=== PATIENT | female | born 2000 | race Caucasian/White ===

== ENCOUNTER → 2020-03-20 13:55 | Outpatient (BNVA) | payer MEDICAID, SELFPAY | PROVIDERS: Family Provider Nurse Practitioner Family; PCP Nurse Practitioner Family; Visit Provider Obstetrics & Gynecology | DX: Z12.4 Encounter for screening for malignant neoplasm of cervix (principal); N93.9 Abnormal uterine and vaginal bleeding, unspecified | CPT/HCPCS: 83001; 84146; 84443; 88175 ==

== ENCOUNTER → 2020-04-04 13:12 | Outpatient (BNVA) | payer MEDICAID, SELFPAY | PROVIDERS: Family Provider Nurse Practitioner Family; PCP Nurse Practitioner Family; Visit Provider Obstetrics & Gynecology | DX: N93.9 Abnormal uterine and vaginal bleeding, unspecified (principal); N85.2 Hypertrophy of uterus; N83.8 Other noninflammatory disorders of ovary, fallopian tube and broad ligament | CPT/HCPCS: 76830 ==

== ENCOUNTER → 2020-04-17 14:30 | Outpatient (BNVA) | payer MEDICAID, SELFPAY | PROVIDERS: Family Provider Nurse Practitioner Family; PCP Nurse Practitioner Family; Visit Provider Family Medicine | DX: N93.9 Abnormal uterine and vaginal bleeding, unspecified (principal); Z32.01 Encounter for pregnancy test, result positive | CPT/HCPCS: 81025; 84702 ==

== ENCOUNTER → 2020-05-08 11:04 | Outpatient (BNVA) | payer MEDICAID, SELFPAY | PROVIDERS: Family Provider Nurse Practitioner Family; PCP Nurse Practitioner Family; Visit Provider Nurse Practitioner Family | DX: Z11.59 Encounter for screening for other viral diseases (principal) | CPT/HCPCS: 87635 ==

== ENCOUNTER → 2020-05-19 10:19 | Outpatient (BNVA) | payer MEDICAID, SELFPAY | PROVIDERS: Family Provider Nurse Practitioner Family; PCP Nurse Practitioner Family; Visit Provider Obstetrics & Gynecology | DX: O20.9 Hemorrhage in early pregnancy, unspecified (principal) | CPT/HCPCS: 84702 ==

== ENCOUNTER → 2020-05-23 08:44 | Outpatient (BNVA) | payer MEDICAID, SELFPAY | PROVIDERS: Family Provider Nurse Practitioner Family; PCP Nurse Practitioner Family; Visit Provider Obstetrics & Gynecology | DX: Z36.87 Encounter for antenatal screening for uncertain dates (principal); O20.9 Hemorrhage in early pregnancy, unspecified | CPT/HCPCS: 76817; 84702 ==

== ENCOUNTER → 2020-05-25 14:12 | Outpatient (BNVA) | payer MEDICAID, SELFPAY | PROVIDERS: Family Provider Nurse Practitioner Family; PCP Nurse Practitioner Family; Visit Provider Obstetrics & Gynecology | DX: O03.4 Incomplete spontaneous abortion without complication (principal) | CPT/HCPCS: 84702 ==

== ENCOUNTER → 2020-05-30 13:52 | Outpatient (BNVA) | payer MEDICAID, SELFPAY | PROVIDERS: Family Provider Nurse Practitioner Family; PCP Nurse Practitioner Family; Visit Provider Obstetrics & Gynecology | DX: O03.4 Incomplete spontaneous abortion without complication (principal) | CPT/HCPCS: 84702 ==

== ENCOUNTER → 2020-06-14 11:10 | Outpatient (BNVA) | payer MEDICAID, SELFPAY | PROVIDERS: Family Provider Nurse Practitioner Family; PCP Nurse Practitioner Family; Visit Provider Obstetrics & Gynecology | DX: O03.4 Incomplete spontaneous abortion without complication (principal) | CPT/HCPCS: 84702 ==

== ENCOUNTER → 2020-06-23 14:55 | Outpatient (BNVA) | payer MEDICAID, SELFPAY | PROVIDERS: Family Provider Nurse Practitioner Family; PCP Nurse Practitioner Family; Visit Provider Obstetrics & Gynecology | DX: O03.4 Incomplete spontaneous abortion without complication (principal) | CPT/HCPCS: 84702 ==

== ENCOUNTER → 2020-11-02 16:49 | Outpatient (BNVA) | payer BC, MEDICAID, SELFPAY | PROVIDERS: Family Provider Nurse Practitioner Family; PCP Nurse Practitioner Family; Visit Provider Nurse Practitioner Family | DX: N91.2 Amenorrhea, unspecified (principal); Z34.90 Encounter for supervision of normal pregnancy, unspecified, unspecified trimester; Z68.29 Body mass index [BMI] 29.0-29.9, adult; Z71.89 Other specified counseling | CPT/HCPCS: 81025 ==

== ENCOUNTER → 2020-11-09 10:36 | Outpatient (BNVA) | payer BC, MEDICAID, SELFPAY | PROVIDERS: Family Provider Nurse Practitioner Family; PCP Nurse Practitioner Family; Visit Provider Nurse Practitioner Women's Health | DX: Z34.80 Encounter for supervision of other normal pregnancy, unspecified trimester (principal) | CPT/HCPCS: 81000 ==

== ENCOUNTER → 2020-11-15 15:20 | Outpatient (BNVA) | payer BC, MEDICAID, SELFPAY | PROVIDERS: Family Provider Nurse Practitioner Family; PCP Nurse Practitioner Family; Visit Provider Obstetrics & Gynecology | DX: O21.9 Vomiting of pregnancy, unspecified (principal) | CPT/HCPCS: 80307; 81000; 85027; 86592; 86762; 86787; 86803; 86850; 86900; 87086; 87340 ==

== ENCOUNTER → 2020-11-27 14:45 | Outpatient (BNVA) | payer BC, MEDICAID, SELFPAY | PROVIDERS: Family Provider Nurse Practitioner Family; PCP Nurse Practitioner Family; Visit Provider Obstetrics & Gynecology | DX: Z34.80 Encounter for supervision of other normal pregnancy, unspecified trimester (principal) | CPT/HCPCS: 81000; 87491; 87591 ==

== ENCOUNTER → 2020-12-26 14:25 | Outpatient (BNVA) | payer BC, MEDICAID, SELFPAY | PROVIDERS: Family Provider Nurse Practitioner Family; PCP Nurse Practitioner Family; Visit Provider Nurse Practitioner Women's Health | DX: Z34.80 Encounter for supervision of other normal pregnancy, unspecified trimester (principal) | CPT/HCPCS: 81000 ==

== ENCOUNTER → 2021-01-23 11:52 | Outpatient (BNVA) | payer BC, MEDICAID, SELFPAY | PROVIDERS: Family Provider Nurse Practitioner Family; PCP Nurse Practitioner Family; Visit Provider Obstetrics & Gynecology | DX: O35.1XX0 Maternal care for (suspected) chromosomal abnormality in fetus, not applicable or unspecified (principal); J45.40 Moderate persistent asthma, uncomplicated; F41.9 Anxiety disorder, unspecified | CPT/HCPCS: 81000 ==

== ENCOUNTER → 2021-02-21 08:04 | Outpatient (BNVA) | payer BC, MEDICAID, SELFPAY | PROVIDERS: Family Provider Nurse Practitioner Family; PCP Nurse Practitioner Family; Visit Provider Nurse Practitioner Women's Health | DX: Z34.80 Encounter for supervision of other normal pregnancy, unspecified trimester (principal) | CPT/HCPCS: 81000 ==

== ENCOUNTER → 2021-03-21 12:46 | Outpatient (BNVA) | payer BC, MEDICAID, SELFPAY | PROVIDERS: Family Provider Nurse Practitioner Family; PCP Nurse Practitioner Family; Visit Provider Nurse Practitioner Women's Health | DX: Z34.80 Encounter for supervision of other normal pregnancy, unspecified trimester (principal) | CPT/HCPCS: 81000; 82950; 85025 ==

== ENCOUNTER → 2021-03-27 08:24 | Outpatient (BNVA) | payer BC, MEDICAID, SELFPAY | PROVIDERS: Family Provider Nurse Practitioner Family; PCP Nurse Practitioner Family; Visit Provider Nurse Practitioner Women's Health | DX: Z34.80 Encounter for supervision of other normal pregnancy, unspecified trimester (principal) | CPT/HCPCS: 82951; 82952 ==

== ENCOUNTER → 2021-04-02 08:13 | Outpatient (BNVA) | payer BC, MEDICAID, SELFPAY | PROVIDERS: Family Provider Nurse Practitioner Family; PCP Nurse Practitioner Family; Visit Provider Obstetrics & Gynecology | DX: Z34.80 Encounter for supervision of other normal pregnancy, unspecified trimester (principal) | CPT/HCPCS: 81000 ==

== ENCOUNTER → 2021-04-16 14:22 | Outpatient (BNVA) | payer BC, MEDICAID, SELFPAY | PROVIDERS: Family Provider Nurse Practitioner Family; PCP Nurse Practitioner Family; Visit Provider Obstetrics & Gynecology | DX: J45.40 Moderate persistent asthma, uncomplicated (principal); Z34.80 Encounter for supervision of other normal pregnancy, unspecified trimester | CPT/HCPCS: 81000 ==

== ENCOUNTER → 2021-05-01 10:05 | Outpatient (BNVA) | payer BC, MEDICAID, SELFPAY | PROVIDERS: Family Provider Nurse Practitioner Family; PCP Nurse Practitioner Family; Visit Provider Obstetrics & Gynecology | DX: Z34.80 Encounter for supervision of other normal pregnancy, unspecified trimester (principal) | CPT/HCPCS: 81000 ==

== ENCOUNTER → 2021-05-14 15:32 | Outpatient (BNVA) | payer BC, MEDICAID, SELFPAY | PROVIDERS: Family Provider Nurse Practitioner Family; PCP Nurse Practitioner Family; Visit Provider Obstetrics & Gynecology | DX: Z34.80 Encounter for supervision of other normal pregnancy, unspecified trimester (principal) | CPT/HCPCS: 81000; 87081 ==

== ENCOUNTER → 2021-05-22 13:21 | Outpatient (BNVA) | payer BC, MEDICAID, SELFPAY | PROVIDERS: Family Provider Nurse Practitioner Family; PCP Nurse Practitioner Family; Visit Provider Obstetrics & Gynecology | DX: Z34.80 Encounter for supervision of other normal pregnancy, unspecified trimester (principal) | CPT/HCPCS: 81000 ==

== ENCOUNTER → 2021-05-28 08:47 | Outpatient (BNVA) | payer BC, MEDICAID, SELFPAY | PROVIDERS: Family Provider Nurse Practitioner Family; PCP Nurse Practitioner Family; Visit Provider Obstetrics & Gynecology | DX: Z34.80 Encounter for supervision of other normal pregnancy, unspecified trimester (principal) | CPT/HCPCS: 81000 ==

== ENCOUNTER 2021-05-31 11:40 | Outpatient (CLI) | payer BC, MEDICAID, SELFPAY ==
[2021-06-01 13:43] LABS: Coronavirus Test Green County Not Detected
== END 2021-05-31 11:49 | disposition home or self-care (01) ==
LOC: OPOB 11:47
PROVIDERS: Obstetrics & Gynecology; Family Provider Nurse Practitioner Family; PCP Nurse Practitioner Family; Visit Provider Obstetrics & Gynecology
DX: Z34.80 Encounter for supervision of other normal pregnancy, unspecified trimester (principal); Z20.822 Contact with and (suspected) exposure to COVID-19
CPT/HCPCS: 87635

== ENCOUNTER 2021-06-04 06:35 | Inpatient (IN) | payer BC, MEDICAID, SELFPAY ==
[2021-06-04] VITALS (62 sets, daily range): BP systolic 114–155; BP diastolic 62–101; PULSE 94–146; RESP 16–22; TEMP 36.3–36.6; O2SAT 97–99; BMI 34.1
[2021-06-04] MEDS: lactated ringers 1,000 ML 999 ML IV (06:55)
[2021-06-04 07:18] LABS: Add Urine Microscopic? YES; Bilirubin Urine Neg (Negative); Blood Urine Neg (Negative); Glucose Urine UA Norm (Normal); Ketones Urine Negative (Negative); Leukocyte Esterase Urine 2+ (Negative); Nitrate Urine Negative (Negative); Protein Urine Neg (Negative); Urine Appearance Hazy (CLEAR); Urine Color Yellow (Yellow); Urobilinogen Urine 1 mg/dL (Negative); pH Urine 6 (5-7)
[2021-06-04 07:19] LABS: Basophils % 0.3 %; Eosinophils # 0.2 10^3/uL (0.0-0.8); Eosinophils % 1.3 %; Hematocrit 33.8 % (37.0-47.0); Hemoglobin 10.9 g/dL (11.5-15.3); Lymphocytes # 2.2 10^3/uL (0.8-4.8); Lymphocytes % 18.9 %; Mean Corpuscular HGB Conc 32.2 g/dL (30.0-36.0); Mean Corpuscular Hemoglobin 29.1 pg (28.0-34.0); Mean Corpuscular Volume 90.1 fl (81-99); Mean Platelet Volume 10.7 fL (7.4-10.4); Monocytes # 0.9 10^3/uL (0.2-0.9); Monocytes % 7.8 %; Neutrophils # 8.09 10^3/uL (1.8-7.7); Neutrophils % 70.7 %; Nucleated Red Blood Cells % 0 %; Platelet Count 198 10^3/cmm (130-400); Red Blood Count 3.75 10^6/uL (4.1-5.3); Red Cell Distribution Width 15.9 % (12.1-15.1); White Blood Count 11.5 10^3/uL (4.0-10.0)
[2021-06-04] MEDS: oxytocin 30 UNIT/500 ML BAG IV (07:29)
[2021-06-04] MEDS: dextrose 5%-lactated ringers 1,000 ML 125 ML IV (07:30)
[2021-06-04 07:31] LABS: Alanine Aminotransferase < 5 U/L (0-33); Albumin Level 3.7 g/dL (3.5-5.2); Alkaline Phosphatase 131 IU/L (35-105); Aspartate Amino Transferase 10 U/L (0-32); Blood Urea Nitrogen 6 mg/dL (6-20); Calcium 8.7 mg/dL (8.5-10.5); Carbon Dioxide 20 mmol/L (22-29); Chloride 105 mmol/L (98-107); Globulin 2.6 g/dL (1.3-4.6); Glomerular Filtration Rate 197.8 mL/min (90-130); Glucose 91 mg/dL (65-115); Osmolality Calculated 281 mOsm/kg (285-295); Sodium 137 mmol/L (136-145); Total Bilirubin 0.3 mg/dL (0.15-1.2); Total Protein 6.3 g/dL (6.6-8.7)
[2021-06-04 07:41] LABS: Urine Creatinine 129 mg/dL (28-217)
[2021-06-04 07:43] LABS: Add Urine Culture? No; Bacteria Urine 1+ /hpf; Mucus Urine TRACE /hpf
[2021-06-04 07:45] LABS: UPRO/UCREAT Ratio 0.21 mg/mg CR; Urine Protein Random 27 mg/dL
--- NOTE | 2021-06-04 14:10 | P.HPUD_ITS ---
Labor & Delivery H&P Update Date of Procedure: June 04, 2021 Date H&P Performed: 05/28/21 H&P update information: I have reviewed H&P completed within last 30 days, I have examined patient prior to procedure, Changes to prior documentation as noted here and H&P is in [facility] EMR on date indicated Changes to previous documentation: cx-3-4 cmx Admission Diagnosis:
[2021-06-04] MEDS: fentaNYL 50 mcg/mL INJ 2mL IVP (15:15)
[2021-06-04] MEDS: lidocaine 2% INJ 20 mL INJECTION (15:45)
--- NOTE | 2021-06-04 16:41 | PM.DELIVERY ---
Delivery Note: Date of delivery: June 04, 2021 - PRE-DELIVERY DIAGNOSIS: 21-year-old 4 para 2-0-1-2 at 39 weeks and 1-day gestation Moderate asthma Elective induction of labor Anemia on iron Multiparity desiring permanent sterilization POST-DELIVERY DIAGNOSIS: Vaginal delivery on 06/04/2021 PROCEDURE: Vaginal delivery on 06/04/2021 ANESTHESIA: Epidural anesthesia DELIVERING PHYSICIAN: Mati Potter FACOG PRE-DELIVERY COURSE: Ms. Hernandez is a 21-year-old 4 para 2-0-1-2 at 39 weeks and 1 days who presented to labor and delivery on 06/04/2021 for scheduled elective induction of labor for term . On initial evaluation she was noted to be 2 cm 50% and -3 station with cephalic presentation. tracing was overall category 1 with occasional contractions. She is GBS and Covid negative. Induction of labor was started with Pitocin which was titrated to a maximum of 11 mIU. Pitocin was started at 7:30 AM. With this she started regular contractions. Artificial rupture of membranes was performed at 11:45 AM with clear fluid at which point of time she was noted to be 3 to 4 cm, 70% and -2 station-cephalic. She made rapid cervical change after this and was 7 to 8 cm at 3:10 PM and fully dilated at 3:32 PM. She was set up in lithotomy position ready to push. tracing was category 1 thus far DELIVERY NOTE: She was set up in lithotomy position and was pushing effectively. She was noted to be +3 station and continued pushing well. The head delivered in KIAN position, nuchal cord x1 was present. This was reduced without any difficulty. The shoulders and rest of the body followed with her next push. The baby's mouth and nose were suctioned and the baby was placed on the mother's belly. Once cord pulsations stopped the cord was clamped and cut. The placenta delivered spontaneously intact with membranes and was discarded. The fundus was noted to be a little boggy and with massage a lot of urine came out. Patient was straight cath number 200 mL of clear urine was obtained after which with continued uterine massage the fundus was firm and well contracted. The vagina and cervix were inspected and no cervical or sulcal lacerations were noted. The perineum had a first-degree perineal tear which was repaired in the usual fashion with 3-0 Vicryl on an SH. Good reapproximation and hemostasis was achieved. Baby girl, Elier born at 3:40 PM with 8/9, weighing 8 pounds 6 ounces, 3800 g, 21 inches long. Placenta was delivered spontaneously intact with membranes at 3:42 PM. Cotyledons were intact , centrally inserted umbilical cord with 3 vessels noted. Estimated blood loss 350 mL. Complications-none, both baby and mother were left to recover in a stable condition. -We discussed that a tubal ligation is a permanent procedure and that should she desire to have a reversal procedure the success rate of a reversal procedure is low. I also discussed the failure rate of tubal ligation is less than 1% and that should she find out she is after having the procedure, she needs to see an PATHOLOGY LAB TECHNICIAN immediately as her risk of having an ectopic is higher. She also understands that the regret rate is higher when people to choose permanent sterilization at a younger age. We also discussed the other forms of reversible contraceptions including an IUD, patch, OCP, nexplanon, Depo-Provera. She understands that she has other options but she wants to have her tubes tied. -I discussed with her the difference between partial and total salpingectomy--failure rate, risk of ectopic, reversal success etc. and all her questions were answered. Discussed decreasing risk of ovarian cancer and recommendation for total salpingectomy. -Surgical procedure reviewed with patient including risks of bleeding, infection, anesthesia risk, damage to surrounding organs including bladder, bowel, blood vessels, possible laparotomy, blood transfusion etc. - -Discussed usual recovery with 6 weeks of no heavy lifting and pelvic rest. Discussed importance of being compliant with these postoperative restrictions to ensure that there are no postoperative complications. This documentation was created by [employer] evp global product leadership software (known for inherent evp global product leadership error). Every effort was made to assure accuracy of evp global product leadership. Any obvious errors or omissions should be clarified with the author of the document. History History History 4 Term 3 Miscarriages/Ectopic 1 0 Living Children 3 Other History: 4, Para 3013 x 3 SAB x 1 1--->06/02/2013, male (Joe), weighing 7lbs 9ozs, 38 weeks. Delivered vaginally by Dr. Muniz at [facility] [place], [place]. Three hour labor with no complications and no epidural. 2--->02/07/2016, female, (Vilma), 8lbs 0 oz, 39 weeks, vaginal delivery by Dr. Potter at [facility] in [place], [place]. No epidural. No complications 3---> 05/2020, SAB at 9 weeks. No D & C required. 4--->06/04/2021, vaginal delivery of a baby girl (Elier) weighing 8 pounds 6 ounces at 39 weeks. Vaginal delivery by Dr. Potter at [facility]. 6-hour induction. First-degree perineal tear Coding Level of Care Code Acute Him Specialist for Chg Jose Maria
[2021-06-04] MEDS: ibuprofen 800 mg tablet PO (20:27)
[2021-06-05] VITALS (22 sets, daily range): BP systolic 122–145; BP diastolic 69–97; PULSE 76–100; RESP 14–18; TEMP 36.2–36.6; O2SAT 92–98
[2021-06-05 05:24] LABS: Hematocrit 30.2 % (37.0-47.0); Hemoglobin 9.9 g/dL (11.5-15.3); Mean Corpuscular HGB Conc 32.8 g/dL (30.0-36.0); Mean Corpuscular Hemoglobin 29.5 pg (28.0-34.0); Mean Corpuscular Volume 89.9 fl (81-99); Platelet Count 177 10^3/cmm (130-400); Red Blood Count 3.36 10^6/uL (4.1-5.3); Red Cell Distribution Width 15.8 % (12.1-15.1); White Blood Count 14.5 10^3/uL (4.0-10.0)
[2021-06-05] MEDS: lactated ringers 1,000 ML 999 ML IV (06:28)
--- NOTE | 2021-06-05 06:35 | PC.NURSE ---
Socks and SCD's placed on patient. IV flushed and patent. Bolus hanging. Stomach cleansed with chlorhexidine wipes.
--- NOTE | 2021-06-05 07:21 | P.ANESASSM_ITS ---
Pre-Anesthetic Assessment Pre-Anesthetic Assessment: Height/Weight: Height 1.63 m Weight 90.265 kg Temp Pulse Resp BP Pulse Ox 97.2 F L 100 18 145/97 97 06/05/21 07:08 06/05/21 07:08 06/05/21 07:08 06/05/21 07:08 06/05/21 07:08 Preop Diagnosis: Undesired fertility Proposed Procedure: Operation Date: 06/05/21 08:10 Proposed Procedures p Bilateral Tubal Ligation(Not Applicable) - Mati Robles MD Was Beta Linnea taken within 24 hours: N/A Was Clonidine taken within 24 hours: N/A Last intake: Intake Last Liquid Date 06/04/21 Last Liquid Time 23: Last Solid Date 06/04/21 Last Solid Time 23: Social: Social History: No alcohol and No tobacco Exam: Pre-Anes Outpt Exam: alert, oriented x 3, clear to auscultation b ilaterally and regular rate & rhythm Airway: Submandibular: WNL Cervical ROM: WNL MP: 2 Pulmonary: Pulmonary: Asthma CV/HEM: CV/HEM: None reported : : None reported Hepatic: Hepatic: None reported GI: GI: GERD Metabolic: Metabolic: None reported Musc/skel: Musc/skel: None reported Neuropsych: Neuropsych: None reported Anesthetic Plan: ASA status: 2 Anesthesia: General Meds/Allergies Current Medications: Current Medications Generic Name Dose Route Start Last Admin Trade Name Freq PRN Reason Stop Dose Admin Docusate Sodium 100 mg 06/04/21 18:00 06/04/21 17:20 Docusate Sodium 100 Mg Capsule PO Not Given BID LYNN Lactated Ringer's 1,000 mls @ 999 m ls/hr 06/04/21 22:06 06/05/21 06:28 Lactated Ringers IV 999 mls/hr .Q1H1M PRN Administration ANESTHESIA Ibuprofen 800 mg 06/04/21 21:00 06/04/21 20:27 Ibuprofen 800 Mg Tablet PO 800 mg TID LYNN Administration PFSH Anesthesia PFSH: Medical History Anxiety Reports having anxiety on and off in the past and has taken medication in the past but does not remember names. Has not been on any medicine since at least 2018. Does not have a therapist and follows up with her primary care provider. Asthma Diagnosed at the age of 14 and symptoms controlled per patient with Antoinette Driver. She states that she uses her albuterol inhaler anytime she has shortness of breath and that may include anxiety. -Does not see a coordinator of genetic services and states that her primary care provider manages this. No pertinent past medical history Denies diabetes, hypertension, seizures, DVT/PE [place] [facility] [place] Surgical History No pertinent past surgical history Family History Father Diabetes Grandmother Ovarian cancer paternal, diagnosed in her 30s or 40s Denies family history of Colon cancer Heart disease Hypercholesteremia Breast cancer Bleeding disorder Hypertension Uterine cancer Thyroid disease Stroke Social History Smoking and tobacco status: never smoked Alcohol intake: never History of recent travel: No Female Reproductive History: : 4 Data Anesthesia CBC & Chem 7: 06/05/21 04:29 06/04/21 06:35 Other Labs: Laboratory Results - last 48 hr 06/04/21 06/04/21 06/04/21 06:35 06:35 06:50 WBC 11.5 H RBC 3.75 L Hgb 10.9 L Hct 33.8 L MCV 90.1 MCH 29.1 MCHC 32.2 RDW 15.9 H Plt Count 198 MPV 10.7 H Neut % (Auto) 70.7 Lymph % (Auto) 18.9 Miller % (Auto) 7.8 Eos % (Auto) 1.3 Baso % (Auto) 0.3 Neut # (Auto) 8.09 H Lymph # (Auto) 2.2 Miller # (Auto) 0.9 Eos # (Auto) 0.2 Baso # (Auto) 0.0 Nucleated RBC % (auto) 0 Nucleated RBCs # 0.0 Sodium 137 Potassium 4.0 Chloride 105 Carbon Dioxide 20 L Anion Gap 16.0 BUN 6 Creatinine 0.4 L GFR Calculation 197.8 H Glucose 91 Calculated Osmolality 281 L Uric Acid 4.0 Calcium 8.7 Total Bilirubin 0.3 AST 10 ALT < 5 Alkaline Phosphatase 131 H Total Protein 6.3 L Albumin 3.7 Globulin 2.6 Urine Color Yellow Urine Appearance Hazy A Urine pH 6 Ur Specific [place] 1.020 Urine Protein Neg Urine Glucose (UA) Norm Urine Ketones Negative Urine Blood Neg Urine Nitrate Negative Urine Bilirubin Neg Urine Urobilinogen 1 H Ur Leukocyte Esterase 2+ H Urine RBC None Urine WBC 10-15 H Ur Squamous Epith Cells 10-15 H Amorphous Sediment Not Reportable Urine Bacteria 1+ H Urine Mucus Trace U Random Total Protein Urine Creatinine Protein/Creatinin Ratio 06/04/21 06/05/21 06:50 04:29 WBC 14.5 H RBC 3.36 L Hgb 9.9 L Hct 30.2 L MCV 89.9 MCH 29.5 MCHC 32.8 RDW 15.8 H Plt Count 177 MPV 11.0 H Neut % (Auto) Lymph % (Auto) Miller % (Auto) Eos % (Auto) Baso % (Auto) Neut # (Auto) Lymph # (Auto) Miller # (Auto) Eos # (Auto) Baso # (Auto) Nucleated RBC % (auto) Nucleated RBCs # Sodium Potassium Chloride Carbon Dioxide Anion Gap BUN Creatinine GFR Calculation Glucose Calculated Osmolality Uric Acid Calcium Total Bilirubin AST ALT Alkaline Phosphatase Total Protein Albumin Globulin Urine Color Urine Appearance Urine pH Ur Specific [place] Urine Protein Urine Glucose (UA) Urine Ketones Urine Blood Urine Nitrate Urine Bilirubin Urine Urobilinogen Ur Leukocyte Esterase Urine RBC Urine WBC Ur Squamous Epith Cells Amorphous Sediment Urine Bacteria Urine Mucus U Random Total Protein 27 Urine Creatinine 129 Protein/Creatinin Ratio 0.21 Cardiac Studies: No Data to Display
--- NOTE | 2021-06-05 08:29 | P.OP_ITS ---
Operative Report Date of procedure: June 05, 2021 OPERATIVE REPORT Date of surgery: 06/05/2021 Date of dictation: 06/05/2021 Preoperative diagnosis: Multiparity desiring permanent sterilization Postoperative diagnosis/findings: Same, normal tubes bilaterally Procedure done: Bilateral tubal ligation via modified [place] method Specimens removed/disposition of specimens: Segment of right and left fallopian tube Surgeon: Dr. Mait Potter paraprofessional education assistant: Trini Lawrence Anesthesia: General endotracheal tube anesthesia Estimated blood loss: 25 ml Intravenous fluids: 600 mL of LR Urine output: 100 mL of clear urine via Morales catheter at the end of procedure Medications: As per anesthesia records Complications: None, patient was extubated and taken to the recovery room in a stable condition PROCEDURE: After consent was obtained, patient was taken to the operating room where she was placed under general endotracheal tube anesthesia without any difficulty. She was placed supine on the table and was prepped in a sterile fashion. A Morales catheter was used to empty her bladder . She was then draped in a sterile fashion. 5 mL of local anesthetic was injected infraumbilically. An infraumbilical incision was made and the incision was carried down to the fascia using the scalpel. The umbilical plate was identified and grasped with Andres and the fascia was followed down for about 3 cm away from the umbilical plate. The fascia was nicked in the middle with the scalpel and the incision was extended using contreras scissors. The peritoneum was identified and entered using Metzenbaum's after ensuring it was clear. Abdominal cavity was entered, no adhesions noted around the umbilicus. The patient was placed in Trendelenburg and tilted to the right and her left fallopian tube was identified, grasped with a [place] and brought to the incision. The tube was then followed out to the fimbria. The Birdie clamp was used to grasp the tube about 4 cm from the cornua. A 2 cm cm segment of the tube was double ligated with 2-0 suture in a modified Earle's method. This ligated segment of tube was excised and hem ostasis was obtained using the Bovie. The tube was returned to the abdomen. The patient was then tilted to the left and the right fallopian tube was identified, grasped with a Birdie and brought to the incision. A2 cm segment of fallopian tube was excised in a similar fashion, hemostasis was obtained with Bovie and the tube was returned to the abdomen. The peritoneum and fascia were closed in a single layer using 0 Vicryl. The subcutaneous plane was closed with a 2-0 suture in a continuous fashion and the skin was closed in a subcuticular fashion with a 4-0 Monocryl. The incision was dressed with Steri-Strips Telfa and a 2 x 2 and Tegaderm. The patient tolerated the procedure well sponge lap and needle counts were correct x2 and the patient was taken to the recovery room in a stable condi tion. This documentation was created by in[employer]DA cleaner industrial software (known for inherent cleaner industrial error). Every effort was made to assure accuracy of cleaner industrial. Any obvious errors or omissions should be clarified with the author of the document. Pre-op Diagnosis: Undesired fertility
--- NOTE | 2021-06-05 08:41 | P.PCN_ITS ---
PACU note PACU note: VSS, Good respiratory effort, report to INFUSION NURSE Post-Anesthesia Exam: awake
--- NOTE | 2021-06-05 08:41 | PM.PACU ---
PACU note PACU note: VSS, Good respiratory effort, report to DIRECTOR TALENT ACQUISITION Post-Anesthesia Exam: awake
--- NOTE | 2021-06-05 08:46 | SUR.PHASEI ---
PT ARRIVES TO PACU ON RA SATS GOOD PT COUGHS OCCASIONALLY , PT SLEEPS MOSTLY, SATS NOW DOWN TO 90% PT MOVES SELF UP IN BED ABD SOFT DRESSING D/I PT PLACED ON 2LNC SATS UP TO 97% PT SLEEPS WITH NO DISTRESS NOTED. AWAKES EASILY AND TAKES ICE CHIPS OCC.
[2021-06-05] MEDS: ibuprofen 800 mg tablet PO ×3 (11:13→21:33)
[2021-06-05] MEDS: prenatal vitamin Capsule 1 CAP PO (11:13)
--- NOTE | 2021-06-05 12:28 | ANE.PACU2 ---
Inpatient post-anesthesia follow up: Airway intact: Yes Vital signs: Temperature 97.6 F Pulse Rate 83 Respiratory Rate 16 Blood Pressure 122/69 Pulse Oximetry 95 Oxygen Delivery Me thod Nasal Cannula Oxygen Flow Rate 2 Fraction of Inspir ed Oxygen Hydration adequate: Yes Nausea and vomiting: No Pain level: 3 Mental status: Baseline
--- NOTE | 2021-06-05 14:21 | P.DS_ITS ---
Discharge Providers ELECTRICAL MAINTENANCE WORKER Date of Admission: 06/04/21 06:35 Date of Discharge: 06/05/21 Attending Provider at Admission: Mati Robles MD Attending Provider at Discharge: Mati Robles MD Primary Care Provider: PRE-DELIVERY DIAGNOSIS: 21-year-old 4 para 2-0-1-2 at 39 weeks and 1-day gestation Moderate asthma Elective induction of labor Anemia on iron Multiparity desiring permanent sterilization POST-DELIVERY DIAGNOSIS: Vaginal delivery on 06/04/2021 PROCEDURE: Vaginal delivery on 06/04/2021 ANESTHESIA: Epidural anesthesia DELIVERING PHYSICIAN: Mati Potter FACOG PRE-DELIVERY COURSE: Ms. Hernandez is a 21-year-old 4 para 2-0-1-2 at 39 weeks and 1 days who presented to labor and delivery on 06/04/2021 for scheduled elective induction of labor for term . On initial evaluation she was noted to be 2 cm 50% and -3 station with cephalic presentation. tracing was overall category 1 with occasional contractions. She is GBS and Covid negative. Induction of labor was started with Pitocin which was titrated to a maximum of 11 mIU. Pitocin was started at 7:30 AM. With this she started regular contractions. Artificial rupture of membranes was performed at 11:45 AM with clear fluid at which point of time she was noted to be 3 to 4 cm, 70% and -2 station-cephalic. She made rapid cervical change after this and was 7 to 8 cm at 3:10 PM and fully dilated at 3:32 PM. She was set up in lithotomy position ready to push. tracing was category 1 thus far DELIVERY NOTE: She was set up in lithotomy position and was pushing effectively. She was noted to be +3 station and continued pushing well. The head delivered in KIAN position, nuchal cord x1 was present. This was reduced without any difficulty. The shoulders and rest of the body followed with her next push. The baby's mouth and nose were suctioned and the baby was placed on the mother's belly. Once cord pulsations stopped the cord was clamped and cut. The placenta delivered spontaneously intact with membranes and was discarded. The fundus was noted to be a little boggy and with massage a lot of urine came out. Patient was straight cath number 200 mL of clear urine was obtained after which with continued uterine massage the fundus was firm and well contracted. The vagina and cervix were inspected and no cervical or sulcal lacerations were noted. The perineum had a first-degree perineal tear which was repaired in the usual fashion with 3-0 Vicryl on an SH. Good reapproximation and hemostasis was achieved. Baby girl, Elier born at 3:40 PM with 8/9, weighing 8 pounds 6 ounces, 3800g, 21 inches long. Placenta was delivered spontaneously intact with membranes at 3:42 PM. Cotyledons were intact , centrally inserted umbilical cord with 3 vessels noted. Estimated blood loss 350 mL. Complications-none, both baby and mother were left to recover in a stable condition. HOSPITAL COURSE: She underwent an uncomplicated vaginal delivery on 06/04/2021. She did well on day 0 and was ambulating well, tolerating regular diet, voiding freely, passing flatus. She was formula feeding without difficulty and bonding well with her daughter. Pain was well-controlled with by mouth pain medication. She denied nausea, vomiting, fever, chills, shortness of breath, leg pain. She had moderate vaginal bleeding. On day #1 she continued to do well with stable vital signs and stable hemoglobin at 9.9. She underwent a tubal ligation on 06/05/2021- day 1 as per her request without any difficulty-see operative report for details. She did well postoperatively and had no problems and pain was well controlled. She was discharged home on day 1 in a stable condition, as she desired early discharge. Warning signs for endometritis, mastitis, DVT/PE were reviewed with her. Post delivery activity restrictions were also reviewed with her at all her questions were answered to her satisfaction. She underwent sterilization for contraception EXAM AT DISCHARGE: Gen.: No acute distress Heart: S1-S2 heard, regular rate and rhythm Lungs: Clear to auscultation bilaterally Abdomen: Soft, fundus firm below umbilicus Legs: No calf tenderness, trace bilateral pitting pedal edema. CONDITION AT DISCHARGE: Stable This documentation was created by [employer] arboreal scientist software (known for inherent arboreal scientist error). Every effort was made to assure accuracy of arboreal scientist. Any obvious errors or omissions should be clarified with the author of the document. Reason for Visit Reason for Visit: IOL Information Peripartum Data: Delivery Method: Vaginal Physical Exam Urinary Catheter Management^: Morales: Cath Placed During This Visit: yes, but has since been removed by the nurse Urinary Catheter Date of Insertion: 06/05/21 Urinary Catheter Time of Insertion: 07:52 Date Urinary Catheter Removed: 06/05/21 Time Urinary Catheter Discontinued: 08:24 History History History 4 Term 3 Miscarriages/Ectopic 1 0 Living Children 3 Other History: 4, Para 3013 x 3 SAB x 1 1--->06/02/2013, male (Joe), weighing 7lbs 9ozs, 38 weeks. Delivered vaginally by Dr. Muniz at [place], [place]. Three hour labor with no complications and no epidural. 2--->02/07/2016, female, (Vilma), 8lbs 0 oz, 39 weeks, vaginal delivery by Dr. Potter at [facility] in [place], [place]. No epidural. No complications 3---> 05/2020, SAB at 9 weeks. No D & C required. 4--->06/04/2021, vaginal delivery of a baby girl (Elier) weighing 8 pounds 6 ounces at 39 weeks. Vaginal delivery by Dr. Potter at [facility] [place]. 6-hour induction. First-degree perineal tear Discharge Data Data Completed and Pending: Pending at discharge Category Date Time Status Pathology: Surgic al [PTH] Routine Pth 06/05/21 08:24 Received Labs from last 24 hours 06/05/21 04:29 WBC 14.5 H RBC 3.36 L Hgb 9.9 L Hct 30.2 L MCV 89.9 MCH 29.5 MCHC 32.8 RDW 15.8 H Plt Count 177 MPV 11.0 H Vitals: Last Vital Signs Temp 97.6 F 06/05/21 10:00 Pulse 83 06/05/21 10:08 Resp 16 06/05/21 10:00 BP 122/69 06/05/21 10:08 Pulse Ox 95 06/05/21 09:45 Discharge Plan Discharge Patient Disposition: Home Condition: Stable Prescriptions: New hydrocodone-acetaminophen 5-325 mg tablet 1 tab PO Q6H Qty: 25 RF: 0 docusate sodium 100 mg Capsule 100 mg PO BID PRN (Reason: constipation) Qty: 30 RF: 0 ibuprofen 800 mg tablet 800 mg PO Q8H Qty: 30 RF: 0 Continued prenat.vits,nona,[id number] Tablet 1 tab PO DAILY Qty: 90 RF: 1 fluticasone propion-salmeterol [Advair Diskus] 250-50 mcg/dose blister with device See Rx Instructions .ROUTE .COMPLEX Qty: 60 RF: 0 albuterol sulfate [ProAir HFA] 90 mcg/actuation HFA aerosol inhaler See Rx Instructions .ROUTE .COMPLEX Qty: 18 RF: 2 Discontinued ferrous sulfate 325 mg (65 mg iron) tablet,delayed release (DR/EC) 325 mg PO BID Qty: 90 RF: 1 Discharge Orders: Discharge Order (Routine); Ordered 06/05/21 Ordered By: Mati Robles Referrals: Mati Robles MD [Physician] - Discharge Diet: Regular Discharge Activity: Limit activity as instructed Patient Instructions: Depression (GEN), Bleeding (GEN), Tubal Ligation (GEN), Breast Care for the Non- Mother (GEN), Hemorrhage (GEN), OB Discharge Report, OB Food/Drug Interaction Guide, OB Care at Home, Opioid Safety, OB Home Care, OB Vaginal Deliveries, Abnormal Bleeding Activity Restrictions/Additional Instructions: Pelvic rest for 6 weeks, no heavy lifting for 6 weeks, 2-week incision check with [place] [place] in 6-week visit with Dr. Potter Discharge Attestations ELECTRICAL MAINTENANCE WORKER Time Spent in Discharge Care*: greater than 30 min Coding Level of Care Code Acute Quality Head for Chg Jose Maria
--- NOTE | 2021-06-05 18:03 | PC.NURSE ---
Dr. Potter notified that patients baby was going to be kept inpatient over night. Asked if she would like pt to remain inpatient with her baby or if she would like to go ahead and discharge her and have her room in. Dr. Potter reported that pt may be discharged as long as she has her pain meds available to her. Responded that pt meds are at [facility] and pt would not be able to get them before the pharmacy closes. Pt would like to stay inpatient.
[2021-06-05] MEDS: HYDROcodone-acetaminophen 5-325 mg Tablet PO (22:49)
[2021-06-06 03:51] VITALS: BP 124/76; PULSE 76; RESP 14; TEMP 36.8
[2021-06-06] MEDS: HYDROcodone-acetaminophen 5-325 mg Tablet PO (05:18)
[2021-06-06 07:07] VITALS: BP 130/70; PULSE 87
[2021-06-06 08:22] VITALS: BP 130/70; PULSE 87; RESP 20; TEMP 36.6
== END 2021-06-06 08:31 | disposition home or self-care (01) | DRG 798 ==
LOC: OPOB 06:35 → OBGYN 06:35
PROVIDERS: Admitting Provider Obstetrics & Gynecology; PCP Nurse Practitioner Family; Visit Provider Obstetrics & Gynecology
PROC: (CPT 58605; principal; 2021-06-05 08:10)
DX: O99.52 Diseases of the respiratory system complicating childbirth (principal); Z37.0 Single live birth; J45.40 Moderate persistent asthma, uncomplicated; O99.02 Anemia complicating childbirth; D64.9 Anemia, unspecified; O69.81X0 Labor and delivery complicated by cord around neck, without compression, not applicable or unspecified; O70.0 First degree perineal laceration during delivery; Z3A.39 39 weeks gestation of pregnancy; Z30.2 Encounter for sterilization
CPT/HCPCS: 36415; 51702; 59025; 59409; 80053; 81001; 82570; 84156; 84550; 85025; 85027; 88302; J0330; J1100; J2405; J2704; J2710; J3010; J3490; J3535

== ENCOUNTER → 2021-12-09 11:33 | Outpatient (BNVA) | payer BC, MEDICAID, SELFPAY | PROVIDERS: PCP Nurse Practitioner Family; Visit Provider Emergency Medicine | DX: S99.912A Unspecified injury of left ankle, initial encounter (principal); X58.XXXA Exposure to other specified factors, initial encounter; M79.89 Other specified soft tissue disorders; M77.32 Calcaneal spur, left foot | CPT/HCPCS: 73610 ==

== ENCOUNTER → 2022-03-14 15:51 | Outpatient (BNVA) | payer BC, MEDICAID, SELFPAY | PROVIDERS: PCP Nurse Practitioner Family; Visit Provider Nurse Practitioner Family | DX: J45.909 Unspecified asthma, uncomplicated (principal); Z80.1 Family history of malignant neoplasm of trachea, bronchus and lung; Z80.49 Family history of malignant neoplasm of other genital organs; J06.9 Acute upper respiratory infection, unspecified; Z80.0 Family history of malignant neoplasm of digestive organs | CPT/HCPCS: 80053; 82103; 82175; 83655; 83825; 85025; 86003 ==

== ENCOUNTER → 2022-11-22 16:34 | Outpatient (BNVA) | payer BC, MEDICAID, SELFPAY | PROVIDERS: PCP Nurse Practitioner Family; Visit Provider Nurse Practitioner Family | DX: M25.532 Pain in left wrist (principal) | CPT/HCPCS: 73110 ==

== ENCOUNTER → 2023-06-10 12:12 | Outpatient (BNVA) | payer BC, MEDICAID, SELFPAY | PROVIDERS: PCP Nurse Practitioner Family; Visit Provider Nurse Practitioner Family | DX: R53.83 Other fatigue (principal) | CPT/HCPCS: 80053; 82306; 82607; 83735; 84443; 85025 ==

== ENCOUNTER → 2025-05-18 14:07 | Outpatient (BNVA) | payer BC, MEDICAID, SELFPAY | DX: Z76.89 Persons encountering health services in other specified circumstances (principal) | CPT/HCPCS: 80053; 82306; 82607; 84443; 85025 ==

== ENCOUNTER → 2025-05-25 13:14 | Outpatient (BNVA) | payer BC, MEDICAID, SELFPAY | PROVIDERS: Visit Provider Nurse Practitioner Family | DX: R39.9 Unspecified symptoms and signs involving the genitourinary system (principal); R53.82 Chronic fatigue, unspecified | CPT/HCPCS: 81000; 82728; 83036; 83550 ==